=== PATIENT | female | born 1980 | race Caucasian/White ===

== ENCOUNTER 2018-06-09 20:39 | Emergency (ER) | payer OTHER ==
[2018-06-09] MEDS ORDERED: Albuterol-Ipratrop 3 mg / 0.5 (3 ml) UD IH STA (22:04)
[2018-06-09] MEDS ORDERED: Albuterol-Ipratrop 3 mg / 0.5 (3 ml) UD ONE (22:22)
--- NOTE | 2018-06-09 23:22 | C.PDOC ---
History Of Present Illness 38 y/o F 11 weeks p/w shortness of breath which patient states is the same as previous asthma exacerbations. Also reports fever and body aches, cough. States went to Urgent Care but they were not comfortable treating patient for asthma while and referred patient to ED. Denies chest pain, vomiting, recent travel. Denies abdominal pain or vaginal bleeding. Time Seen by Provider: 06/09/18 21:41 Chief Complaint (Nursing): Fever Past Medical History Vital Signs: Last Vital Signs Temp 100.2 F H 06/09/18 21:30 Pulse 115 H 06/09/18 21:30 Resp 18 06/09/18 21:30 BP Pulse Ox 99 06/09/18 21:30 - Medical History PMH: Asthma Family History: States: Unknown Family Hx - Social History Hx Alcohol Use: No Hx Substance Use: No - Immunization History Hx Tetanus Toxoid Vaccination: No Hx Influenza Vaccination: No Hx Pneumococcal Vaccination: No Review Of Systems Except As Marked, All Systems Reviewed And Found Negative. Cardiovascular: Negative for: Chest Pain Gastrointestinal: Negative for: Vomiting Physical Exam - Physical Exam Additional Physical Exam Comments: Gen: NAD Head: NC/AT Eyes: PERRL ENT: MMM Neck: Supple Chest: No tenderness CV: Tachycardic Lungs: Wheezing, no rhonchi or crackles Abd: Soft, NT Back: NO CVA tenderness Skin: no rash Extremities: No tenderness Neuro: Alert, no focal deficit ED Course And Treatment O2 Sat by Pulse Oximetry: 99 Medical Decision Making Medical Decision Making: Duoneb administered. Acetaminophen administered for fever. Influenza negative but not sensitive, will start tamiflu treatment. Disposition - Disposition Disposition: HOME/ ROUTINE Disposition Time: 23:31 Condition: STABLE Prescriptions: Albuterol 0.083% [Albuterol Sulfate 3 Ml] 3 ml IH Q4 #150 neb Albuterol HFA [Ventolin HFA 90 mcg/actuation (8 g)] 2 puff IH Q6 #1 inhaler Oseltamivir Phosphate [Tamiflu] 1 cap PO BID #9 capsule Prednisone [Deltasone] 3 tab PO DAILY #12 tablet Instructions: Asthma and Forms: [facility] (German) - Clinical Impression Clinical Impression: Asthma exacerbation
[2018-06-09 23:29] VITALS: BP 122/72; PULSE 104; RESP 22; TEMP 99.6
[2018-06-09 23:31] VITALS: O2SAT 99
== END 2018-06-09 23:45 | disposition home or self-care (01) ==
LOC: SUPCPDRO 20:39 → C.ER 20:39
DX: O99.511 Diseases of the respiratory system complicating pregnancy, first trimester (principal); J45.901 Unspecified asthma with (acute) exacerbation; Z3A.11 11 weeks gestation of pregnancy